=== PATIENT | female | born 1970 | race Caucasian/White ===

== ENCOUNTER → 2016-07-09 | Outpatient (CLI) | payer BC ==
[~2016-07-09] MED LIST: IBUP-1050 PO; SUMA100T16 PO
--- NOTE | 2016-07-09 12:32 | MAMMOGRAPHY REPORT ---
BILATERAL DIGITAL SCREENING MAMMOGRAM TOMOSYNTHESIS WITH CAD: 07/09/2016 TECHNIQUE: Breast tomosynthesis in addition to standard 2D mammography was performed. Current study was also evaluated with a Computer Aided Detection (CAD) system. COMPARISON: Comparison is made to exams dated: 07/08/2015 mammogram, 07/05/2014 mammogram, 01/30/2013 mammogram, 12/09/2011 mammogram, and 10/02/2010 mammogram - [facility]. BREAST COMPOSITION: There are scattered areas of fibroglandular density in both breasts. FINDINGS: No suspicious masses, calcifications, or areas of architectural distortion are noted in e ither breast. There has been no significant interval change compared to prior exams. IMPRESSION: ACR BI-RADS CATEGORY 1: NEGATIVE There is no mammographic evidence of malignancy. A 1 year screening mammogram is recommended. The p atient will receive written notification of the results. Approximately 10% of breast cancers are not detected with mammography. A negative mammographic repor t should not delay biopsy if a clinically suggestive mass is present. Rebekah Gonzalez M.D. ah/:07/09/2016 12:03:29 Public Health Nurse: Mara EMMANUEL(R)(M)(BD), [facility] letter sent: Normal 1/2 BI-RADS Code: ACR BI-RADS Category 1: Negative
== END | disposition home or self-care (01) ==
LOC: C.MAMM 11:40
PROVIDERS: ATTEND Obstetrics & Gynecology
DX: Z12.31 Encounter for screening mammogram for malignant neoplasm of breast (principal)

== ENCOUNTER → 2017-07-12 | Outpatient (CLI) | payer OTHER ==
--- NOTE | 2017-07-13 07:56 | MAMMOGRAPHY REPORT ---
BILATERAL DIGITAL SCREENING MAMMOGRAM TOMOSYNTHESIS WITH CAD: 07/12/2017 CLINICAL HISTORY: Routine screening. TECHNIQUE: Breast tomosynthesis in addition to standard 2D mammography was performed. Current study was also evaluated with a Computer Aided Detection (CAD) system. COMPARISON: Comparison is made to exams dated: 07/09/2016 mammogram, 07/08/2015 mammogram, 07/05/2014 m ammogram, 01/30/2013 mammogram, 12/09/2011 mammogram, and 10/02/2010 mammogram - [facility]. BREAST COMPOSITION: There are scattered areas of fibroglandular density in both breasts. FINDINGS: There is a 9 mm asymmetry in the anterior right breast along the posterior nipple line on the CC view for which additional spot compression tomosynthesis views and possible ultrasound are rec ommended. No other suspicious mass, architectural distortion or cluster of microcalcifications is seen. IMPRESSION: ACR BI-RADS CATEGORY 0: INCOMPLETE EVALUATION: NEED ADDITIONAL IMAGING EVALUATION The 9 mm asymmetry in the anterior right breast needs additional evaluation. The patient will be called to schedule an appointment. Approximately 10% of breast cancers are not detected with mammography. A negative mammographic report should not delay biopsy if a clinically suggestive mass is present. Myesha Grant M.D. ay/:07/13/2017 07:36:29 Tire Mold Tester: Christiano EMMANUEL(Mark)(M), [facility] letter sent: Addl Imaging 0 BI-RADS Code: ACR BI-RADS Category 0: Incomplete Evaluation: Need Additional Imaging Evaluation
== END | disposition home or self-care (01) ==
LOC: C.MAMM 11:42
PROVIDERS: ATTEND Obstetrics & Gynecology
DX: Z12.31 Encounter for screening mammogram for malignant neoplasm of breast (principal); N64.89 Other specified disorders of breast

== ENCOUNTER → 2017-07-27 | Outpatient (CLI) | payer OTHER ==
--- NOTE | 2017-07-27 15:15 | MAMMOGRAPHY REPORT ---
UNILATERAL RIGHT DIGITAL DIAGNOSTIC MAMMOGRAM TOMOSYNTHESIS AND TARGETED RIGHT ULTRASOUND: 07/27/2017 CLINICAL HISTORY: 46-year-old woman called back from screening mammography for a 9 mm asymmetry in th e anterior, slightly medial right breast on the CC view. TECHNIQUE: Spot compression right CC and MLO tomosynthesis images were obtained. COMPARISON: Comparison is made to exams dated: 07/12/2017 mammogram, 07/09/2016 mammogram, 07/08/2015 m ammogram, 07/05/2014 mammogram, 01/30/2013 mammogram, and 12/09/2011 mammogram - [facility] enter. BREAST COMPOSITION: There are scattered areas of fibroglandular density in the right breast. FINDINGS: The supplemental spot compression tomosynthesis views of the right breast demonstrate the 9 mm asymmetry is less prominent, particularly on the CC spot compression tomosynthesis images. There are no masslike features or associated architectural distortion. No corresponding mass, suspicious asymmetry or architectural distortion seen on the spot compression MLO tomosynthesis images of the ri ght breast. Further evaluation with ultrasound was performed. Targeted ultrasound was performed in the right breast 12:00 through 6:00 including the medial breast. Sonographically normal tissue is seen without a suspicious solid or cystic mass. Additionally, the appearance of the spot compression right CC view appears similar to prior mammograms including the mammogram, suggesting benign fibroglandular tissue. IMPRESSION: ACR BI-RADS CATEGORY 2: BENIGN, TARGETED ULTRASOUND ACR BI-RADS CATEGORY 2: BENIGN There is effacement of a 9 mm asymmetry in the slightly medial anterior right breast on the cc view a s the spot compression tomosynthesis view currently appears similar to prior mammograms including the 2012 exam. No suspicious sonographic correlate was identified. These findings confirm normal overl apping fibroglandular tissue. Recommend return to annual screening mammography schedule. These results and recommendations were discussed with the patient at the time of the exam. Approximately 10% of breast cancers are not detected with mammography. A negative mammographic report should not delay biopsy if a clinically suggestive mass is present. Myesha Grant M.D. ay/:07/27/2017 09:41:58 Special Officer Automat: Christiano EMMANUEL(Mark)(Mat), [facility] letter sent: Normal 1/2 BI-RADS Code: ACR BI-RADS Category 2: Benign Ultrasound BI-RADS: ACR BI-RADS Category 2: Benign
== END | disposition home or self-care (01) ==
LOC: C.MAMM 08:20
PROVIDERS: ATTEND Obstetrics & Gynecology
DX: R92.8 Other abnormal and inconclusive findings on diagnostic imaging of breast (principal); N64.89 Other specified disorders of breast

== ENCOUNTER → 2017-12-22 | Outpatient (CLI) | payer OTHER ==
--- NOTE | 2017-12-22 12:08 | DIAGNOSTIC IMAGING REPORT ---
RIGHT FOOT 3 VIEWS CLINICAL HISTORY: Right foot pain and swelling. FINDINGS: 3 views of the right foot are obtained. No prior studies are available for comparison at the time of dictation. The skeletal structures are well mineralized. No fracture is seen. The joint spaces of the foot are preserved. An os naviculari is incidentally noted. There is a large plantar calcaneal enthesophyte. Mild degenerative spurring is seen along the dorsal aspect of the tarsal bones, and there is mild dorsal soft tissue swelling. IMPRESSION: 1. Dorsal soft soft tissue swelling with no acute bony abnormality identified. 2. A large plantar heel spur is observed. Electronically signed by: Robert Vaughn M.D. 12/22/2017 12:07 PM Dictated Date/Time: 12/22/2017 12:05 PM
== END | disposition home or self-care (01) ==
LOC: C.RAD1850 10:37
PROVIDERS: ATTEND Family Medicine
DX: M79.671 Pain in right foot (principal)